=== PATIENT | male | born 1960 | race Caucasian/White ===

== ENCOUNTER → 2020-12-15 12:42 | Outpatient (CLI) | payer OTHER, SELFPAY ==
[2020-12-15] MEDS: COVID-19 VACC #1, MRNA(MOD) 100 MCG/0.5 ML VIAL IM (12:50)
== END ==
PROVIDERS: Visit Provider Internal Medicine
DX: Z23 Encounter for immunization (principal)
CPT/HCPCS: 0011A; 91301

== ENCOUNTER → 2021-01-13 15:15 | Outpatient (CLI) | payer OTHER, SELFPAY ==
[2021-01-13] MEDS: COVID-19 VACC #2, MRNA(MOD) 100 MCG/0.5 ML VIAL IM (15:34)
== END ==
PROVIDERS: Visit Provider Internal Medicine
DX: Z23 Encounter for immunization (principal)
CPT/HCPCS: 0012A; 91301

== ENCOUNTER → 2021-04-06 16:59 | Outpatient (CLI) | payer OTHER, SELFPAY ==
[2021-04-06 17:53] LABS: COVID19 -Nasal RAPID Negative (Negative)
== END ==
PROVIDERS: Visit Provider Physician Assistant
DX: Z20.822 Contact with and (suspected) exposure to COVID-19 (principal)
CPT/HCPCS: 87635

== ENCOUNTER 2021-04-08 15:04 | Day surgery (SDC) | payer OTHER, SELFPAY ==
[2021-04-08] VITALS (7 sets, daily range): BP systolic 103–118; BP diastolic 64–76; PULSE 47–75; RESP 12–23; TEMP 36.1–37.1; O2SAT 99–100; BMI 20.9
--- NOTE | 2021-04-08 | PATH_ITS ---
[facility] Accession Number: [id number] . 01 Material submitted: . colon - SIGMOID 8 MM . 01 Clinical history: . SDC . 02 Diagnosis: Sigmoid 8 mm: Portions of hyperplastic polyp x2. MRV 04/12/2021 1357 Local . 02 Electronically signed: . Racquel Grace MD, Pathologist NPI- [id number] . 01 Gross description: . SIGMOID 8 MM: Received in formalin are 2 fragment(s) of med[place], soft tissue measuring 0.4 x 0.2 x 0.2 cm to 0.3 x 0.3 x 0.2 cm submitted entirely in 1 cassette(s) /VLADIMIR 04/09/2021 0715 Local . 02 Pathologist provided ICD-10: Z12.11, K63.5 . 02 CPT . 871039 Performed at: 01 [facility] [address], [place], [place] [id number] MD Charles Ng MD Phone: [phone] Performed at: 02 [facility] [address] [place], [place] [id number] MD Marilyn Cha MD Phone: [phone]
--- NOTE | 2021-04-08 12:33 | PM.HP.1 ---
History of Present Illness History of Present Illness Date Patient Seen: 04/08/21 Chief complaint: [facility] Narrative: 60 Years Old Male seen today for consideration of a screening colonoscopy. There have been no lower GI symptoms suggesting disease such as change in bowel habits, bleeding, abdominal pain or anemia. There's been no family history of colon cancer or colon polyps. Overall health issues have been stable, including no major cardiac events for at least 6 weeks. Past Medical History: Arthritis Tobacco use Alcohol Abuse Past Surgical History: Appendectomy (11/2014) Family History: Father - age 87 natural causes Mother - age 75 pneumonia Social History: Marital Status: Single Children:N/A Occupation: Retired Household Members: Education: AA Six 12 oz beers per day Alcohol drinks/day: 6 beers per day, 12 oz Patient History Family & Social History Tobacco & Substance use: Smoking Status Current every day smoker Meds Home Medications and Allergies Home Medications Medication Instructions Recorded Confirmed Type No Known Home Medications 04/08/21 04/08/21 History Allergies Allergy/AdvReac Type Severity Reaction Status Date / Time No Known Drug Allergies Allergy Verified 04/08/21 15:29 Review of Systems Review of Systems Narrative: See HPI. Exam Narrative Exam Narrative: General: well developed, well nourished, in no acute distress, Head: normocephalic and atraumatic, Lungs: normal respiratory effort, clear bilaterally to auscultation, no wheezes rales or rhonchi. Heart: normal rate and regular rhythm, no murmurs, rubs, gallops, or clicks, Abdomen: abdomen soft and non-tender without masses, organomegaly, or abdominal wall hernias, bowel sounds positive. Skin: intact without suspicious lesions or rashes, Psych: alert and cooperative; normal mood and affect; normal attention span and concentration; cognition, remote and recent memory appear to be intact, Assessment & Plan Assessment & Plan narrative: 1. Screening for colon cancer Plan for colonoscopy. The nature and character of the procedure as well as anticipated results were discussed. The possibility of not completing the procedure was also discussed. Possible complications including aspiration pneumonia, bleeding, perforation and reaction to medications either for sedation or preparation and missed lesions were discussed. Questions were answered and proceeding to the colonoscopy was elected. Informed consent signed. I sincerely appreciate the referral allowing me to participate in this patient's care. Please contact me with any questions or concerns. 2. ALCOHOL ABUSE Patient reports that he drinks every day, 6 beers per day. Concerned that he won't be comfortable with his anesthesia. Patient is high risk for difficult sedation. Consult with MD anesthesia.
--- NOTE | 2021-04-08 12:35 | PM.OP.ENDO ---
Operative Date/Time/Diagnoses Date of procedure: 04/08/21 Procedure Notes SCOAP/Timeout: 4:12 p.m. Procedure in detail: ENDOSCOPIST: Chloe Castillo MD Anesthesiologist: Dr. Alvarez Sedation start time: 4:13 p.m. Sedation end time: 4:44 p.m. PROCEDURE: Colonoscopy with cold biopsy INDICATIONS: 1. Screening for colon cancer MEDICATION: Levsin 0.125 mg sublingual, incremental doses of Versed and fentanyl until appropriate level sedation achieved. ASA CLASS: 2 CECAL WITHDRAWAL TIME: 14 minutes COMPLICATIONS: None. EXTENT OF PROCEDURE: Cecum. QUALITY OF PREP: Good with portions of liquid stool. PROCEDURE: Prior to insertion of the colonoscope, a digital rectal examination was accomplished with circumferential palpation of the distal rectal mucosa without significant findings being noted. The high-definition colonoscope was passed into the rectum in the usual fashion and advanced over to the cecum without difficulty. The ileocecal valve, appendiceal stoma, and medial wall all could be inspected and no abnormalities were seen. ASCENDING COLON: As the colonoscope was withdrawn, care was taken to expose and inspect the haustral folds and no abnormalities were seen. HEPATIC FLEXURE: Normal, no polyps, diverticula or other abnormalities. TRANSVERSE COLON: Normal, no polyps, diverticula or other abnormalities. DESCENDING COLON: Normal, no polyps, diverticula or other abnormalities. SIGMOID COLON: Normal, no polyps, diverticula or other abnormalities. RECTUM: Normal. J maneuver was produced. There was no significant perianal disease. The J maneuver was broken. The remainder of the rectum was inspected and there was no external hemorrhoid disease. The scope was withdrawn. IMPRESSION: 1. Sigmoid polyp x1, 8 mm removed with cold biopsy forceps PLAN: 1. Follow-up in clinic status post pathology results. The possibility of a missed lesion including a malignancy has been discussed with the patient previously. Potential alarm symptoms have been discussed and should be reported immediately.
[2021-04-08] MEDS: LACTATED RINGERS 1,000 ML 200 ML IV (15:42)
[2021-04-08] MEDS: ACETAMINOPHEN 325 MG TABLET 975 MG PO (15:45)
[2021-04-08] MEDS: HYOSCYAMINE 0.125 MG TABLET PO (15:45)
--- NOTE | 2021-04-08 17:00 | SUR.PHASEI ---
Very drowsy, talking, declined beverages. States I'm feeling pretty good, I'm feeling OK.
--- NOTE | 2021-04-08 17:09 | SUR.PHASEI ---
Awake, drowsy, tolerating PO well. Stable
== END 2021-04-08 17:35 | disposition home or self-care (01) ==
PROVIDERS: Referring Provider Student in an Organized Health Care Education/Training Program; Visit Provider Student in an Organized Health Care Education/Training Program
PROC: 0DJD8ZZ Inspection of Lower Intestinal Tract, Via Natural or Artificial Opening Endoscopic (ICD-10-PCS; CPT 45378; principal; 2021-04-08 16:00)
DX: Z12.11 Encounter for screening for malignant neoplasm of colon (principal); F41.9 Anxiety disorder, unspecified; F17.210 Nicotine dependence, cigarettes, uncomplicated; F10.10 Alcohol abuse, uncomplicated; K63.5 Polyp of colon
CPT/HCPCS: 45380; J2704

== ENCOUNTER → 2025-06-02 10:15 | Outpatient (CLI) | payer BC, SELFPAY | PROVIDERS: Visit Provider Registered Nurse | DX: R30.0 Dysuria (principal) | CPT/HCPCS: 87086 ==

== ENCOUNTER → 2025-06-02 10:27 | Outpatient (CLI) | payer BC, SELFPAY | PROVIDERS: Referring Provider Registered Nurse; Visit Provider Registered Nurse | DX: Z12.5 Encounter for screening for malignant neoplasm of prostate (principal); R30.0 Dysuria | CPT/HCPCS: 36415; 87086; G0103 ==

== ENCOUNTER → 2025-07-21 11:45 | Outpatient (CLI) | payer MEDICARE, BC, SELFPAY ==
[2025-07-21 13:08] LABS: Prostate Specific Antigen 2.33 ng/mL (0.10-4.00)
== END ==
PROVIDERS: Referring Provider Urology; Visit Provider Urology
DX: R97.20 Elevated prostate specific antigen [PSA] (principal)
CPT/HCPCS: 36415; 84153